=== PATIENT | female | born 1990 | race Caucasian/White ===

== ENCOUNTER → 2021-04-22 | Outpatient (CLI) | payer OTHER ==
--- NOTE | 2021-04-23 08:37 | RAD ---
EXAM: PA, oblique and lateral views of the right wrist DATE: 04/22/2021 1:08 PM INDICATION: Reason: RIGHT WRIST PAIN, HX OF CARPAL TUNNEL COMPARISON: No Prior FINDINGS/ IMPRESSION: No evidence for acute fracture or dislocation. Mild bowing of the pronator fat pad may be postsurgica l or related to soft tissue contusion. Joint spaces are grossly preserved. Electronically signed by: Marin Moore MD (04/23/2021 8:35 AM) [id number]
== END ==
LOC: RAD 13:03
PROVIDERS: ATTEND Physician Assistant
DX: M25.831 Other specified joint disorders, right wrist (principal); G56.01 Carpal tunnel syndrome, right upper limb
CPT/HCPCS: 73110

== ENCOUNTER 2021-11-22 19:22 | Emergency (ER) | payer OTHER ==
[~2021-11-22] VITALS: Ht 157.5 cm; Wt 86.4 kg
[2021-11-22] MEDS ORDERED: LIDO:MAALOX 1:1 20 ML SINGLE DOSE. PO ONE (19:45)
[2021-11-22] MEDS ORDERED: FAMOTIDINE 20 MG/2 ML VIAL IVP ONE (19:45)
--- NOTE | 2021-11-22 19:48 | PHYS DOC ---
General Adult EDM: Chief Complaint: CHEST PAIN HPI: HPI: Patient is a 31-year-old female who presents to the emergency department with heartburn, left shoulder pain and chest tightness that started this morning at 930. Patient reports that she initially had some heartburn and radiated to her left shoulder it was intermittent stabbing pain and she developed midsternal chest tightness. She thought maybe it was attributed to her asthma so she used her inhaler without any relief. He does report mild shortness of breath. Patient reports an episode of diarrhea this morning. She denies nausea, vomiting, fevers. (ROGER FERRARO APRN) Review of Systems: Review of Systems: Constitutional: See HPI Respiratory: See HPI Cardiovascular: See HPI GI: See HPI (ROGER FERRARO APRN) Allergies: Allergies: Allergies Coded Allergies Type Severity Reaction Last Updated Verified ciprofloxacin Allergy Unknown 11/22/21 Yes (ROGER FERRARO APRN) Physical Exam: PE: Constitutional: Well developed, well nourished, no acute distress, non-toxic appearance. [] HENT: Normocephalic, atraumatic, bilateral external ears normal, oropharynx moist, no oral exudates, nose normal. [] Eyes: PERRL, EOMI, conjunctiva normal, no discharge. [] Neck: Normal range of motion, no stridor Cardiovascular:Heart rate regular rhythm, no murmur, no chest wall tenderness with palpation [] Lungs & Thorax: Bilateral breath sounds clear to auscultation [] Abdomen: Bowel sounds normal, soft, no tenderness, obese, no masses, no pulsatile masses. [] Skin: Warm, dry, no erythema, no rash. [] Back: No tenderness, no CVA tenderness. [] Extremities: No tenderness, no cyanosis, no clubbing, ROM intact, no edema. [] Neurologic: Alert and oriented X 3, normal motor function, normal sensory function, no focal deficits noted. [] Psychologic: Affect normal, judgement normal, mood normal. [] (ROGER FERRARO APRN) Current Patient Data: Labs: Laboratory Tests Test 11/22/21 19:29 11/22/21 20:15 Bedside Urine HCG, Qualitative hcg negative White Blood Count 8.7 x10^3/uL Red Blood Count 4.59 x10^6/uL Hemoglobin 14.0 g/dL Hematocrit 41.0 % Mean Corpuscular Volume 89 fL Mean Corpuscular Hemoglobin 31 pg Mean Corpuscular Hemoglobin Concent 34 g/dL Red Cell Distribution Width 12.4 % Platelet Count 291 x10^3/uL Neutrophils (%) (Auto) 55 % Lymphocytes (%) (Auto) 31 % Monocytes (%) (Auto) 7 % Eosinophils (%) (Auto) 6 % Basophils (%) (Auto) 1 % Neutrophils # (Auto) 4.8 x10^3uL Lymphocytes # (Auto) 2.7 x10^3/uL Monocytes # (Auto) 0.6 x10^3/uL Eosinophils # (Auto) 0.5 x10^3/uL Basophils # (Auto) 0.1 x10^3/uL Sodium Level 138 mmol/L Potassium Level 4.2 mmol/L Chloride Level 101 mmol/L Carbon Dioxide Level 25 mmol/L Anion Gap 12 Blood Urea Nitrogen 18 mg/dL Creatinine 0.8 mg/dL Estimated GFR (Cockcroft-Gault) 84.2 BUN/Creatinine Ratio 23 Glucose Level 92 mg/dL Calcium Level 9.6 mg/dL Total Bilirubin 0.3 mg/dL Aspartate Amino Transf (AST/SGOT) 23 U/L Alanine Aminotransferase (ALT/SGPT) 39 U/L Alkaline Phosphatase 72 U/L Troponin I High Sensitivity 5 ng/L Total Protein 7.3 g/dL Albumin 4.3 g/dL Albumin/Globulin Ratio 1.4 Current Medications Medications (Trade) Dose Ordered Sig/Anthony Route PRN Reason Start Time Stop Time Status Last Admin Dose Admin Multi-Ingredient Mouthwash/Gargle (Gi Cocktail) 20 ml 1X ONCE PO 11/22/21 19:45 11/22/21 19:48 DC 11/22/21 20:28 Famotidine (Pepcid Vial) 20 mg 1X ONCE IVP 11/22/21 19:45 11/22/21 19:48 DC 11/22/21 20:26 Morphine Sulfate (Morphine 2mg Syringe) 2 mg 1X ONCE IV 11/22/21 21:15 11/22/21 21:16 DC Ondansetron HCl (Zofran) 4 mg 1X ONCE IVP 11/22/21 21:15 11/22/21 21:16 DC 11/22/21 21:27 (ROGER FERRARO APRN) EKG: EKG: EKG performed by ER staff at 1950 shows sinus rhythm with a rate of 98, QTc of 426, no STEMI read by Dr. Larsen. [] (ROGER FERRARO APRN) Radiology/Procedures: Radiology/Procedures: []PROCEDURE: PORTABLE CHEST 1V Exam Date: 11/22/2021 8:16 PM XR CHEST 1V Indication: Reason: chest tightness / Spl. Instructions: / History: . FINDINGS/ IMPRESSION: The cardiac silhouette and pulmonary vasculature are within normal limits. There is no focal consolidation, pleural effusion or pneumothorax. The visualized osseous structures are intact. Electronically signed by: Olimpia Vigil MD (11/22/2021 9:01 PM) [facility] DICTATED AND SIGNED BY: OLIMPIA VIGIL MD DATE: 11/22/212099 CC: RENE BUSH MD; ROGER FERRARO APRN ~ (ROGER FERRARO APRN) Heart Score: C/O Chest Pain: Yes HEART Score for Chest Pain: HEART Score for Chest Pain Response (Comments) Value History Slighlty/Non-Suspicious 0 Age < 45 0 Risk Factors No Risk Factors 0 Total 0 Risk Factors: Risk Factors: DM, Current or recent (<one month) smoker, HTN, HLP, family history of CAD, obesity. Risk Scores: Score 0 - 3: 2.5% MACE over next 6 weeks - Discharge Home Score 4 - 6: 20.3% MACE over next 6 weeks - Admit for Clinical Observation Score 7 - 10: 72.7% MACE over next 6 weeks - Early Invasive Strategies (ROGER FERRARO APRN) Course & Med Decision Making: Course & Med Decision Making Pertinent Labs and Imaging studies reviewed. (See chart for details) [] Presents to the emergency department for heartburn that radiates to her left shoulder that is intermittent and stabbing as well as midsternal chest tightness. Symptoms started this morning at 930. Work-up in the emergency department consisted of blood work including troponin, EKG and chest x-ray. Patient treated with GI cocktail Pepcid. CBC, CMP and troponin were negative. I went and discussed patient's findings with her and she reports that she gena nues to have heartburn and she is concerned that she may have spontaneous coronary artery dissection because she has FMD. Ddimer and CTA of chest ordered and pending at this time. 2207: I discussed patients case with supervising physician and he will assume care at this time due to shift change. (ROGER FERRARO APRN) Course & Med Decision Making See Tony chart for details. Patient asymptomatic at time of discharge Impression: 1. Atypical Chest Pain 2. GERD 3. Hx. Asthma. Patient keep follow-up with primary care. Consider outpatient stress testing. Return if any concerns. (NOAH LARSEN MD) Dragon Disclaimer: Dragon Disclaimer: This electronic medical record was generated, in whole or in part, using a voice recognition dictation system. (ROGER FERRARO APRN) Departure Departure: Disposition: HOME / SELF CARE / HOMELESS Condition: GOOD Referrals: RENE BUSH MD (PCP) Attending Signature Attending Signature I have participated in the care of this patient and I have reviewed and agree with all pertinent clinical information above including history, exam, and recommendations. (NOAH LARSEN MD) Attending Signature I have participated in the care of this patient and I have reviewed and agree with all pertinent clinical information above including history, exam, and recommendations. (ROGER FERRARO APRN) Dragon Disclaimer This chart was dictated in whole or in part using Voice Recognition software in a busy, high-work load, and often noisy Emergency Department environment. It may contain unintended and wholly unrecognized errors or omissions. (NOAH LARSEN MD) Dragon Disclaimer This chart was dictated in whole or in part using Voice Recognition software in a busy, high-work load, and often noisy Emergency Department environment. It may contain unintended and wholly unrecognized errors or omissions. (ROGER FERRARO APRN) Attending Co-Sign Attending Co-Sign The patient was seen and interviewed as well as examined at the bedside. The chart was reviewed. The case was discussed. Agree with the plan of care. (NOAH LARSEN MD) ROGER FERRARO APRN Nov 22, 2021 19:48 NOAH LARSEN MD Nov 22, 2021 22:04
[2021-11-22 20:33] LABS: BASO # 0.1 x10^3/uL (0.0-0.2); BASO % 1 % (0-3); EOS # 0.5 x10^3/uL (0.0-0.7); EOS % 6 % (0-3); LYMPH # 2.7 x10^3/uL (1.0-4.8); LYMPH % 31 % (24-48); MEAN CORPUSCULAR HEMOGLOBIN 31 pg (25-35); MEAN CORPUSCULAR HGB CONC 34 g/dL (31-37); MEAN CORPUSCULAR VOLUME 89 fL (79-100); MONO # 0.6 x10^3/uL (0.0-1.1); MONO % 7 % (0-9); NEUT # 4.8 x10^3uL (1.8-7.7); NEUT % 55 % (31-73); PLATELET COUNT 291 x10^3/uL (140-400); RED BLOOD COUNT 4.59 x10^6/uL (3.50-5.40); RED CELL DISTRIBUTION WIDTH 12.4 % (11.5-14.5); WHITE BLOOD COUNT 8.7 x10^3/uL (4.0-11.0)
[2021-11-22 20:41] LABS: CALCIUM 9.6 mg/dL (8.5-10.1); CREATININE 0.8 mg/dL (0.6-1.0); GFR 84.2; POTASSIUM 4.2 mmol/L (3.5-5.1)
[2021-11-22 20:47] LABS: ALBUMIN 4.3 g/dL (3.4-5.0); ALBUMIN/GLOBULIN RATIO 1.4 (1.0-1.7); TOTAL BILIRUBIN 0.3 mg/dL (0.2-1.0); TOTAL PROTEIN 7.3 g/dL (6.4-8.2)
--- NOTE | 2021-11-22 21:03 | RAD ---
Exam Date: 11/22/2021 8:16 PM XR CHEST 1V Indication: Reason: chest tightness / Spl. Instructions: / History: . FINDINGS/ IMPRESSION: The cardiac silhouette and pulmonary vasculature are within normal limits. There is no focal consolidation, pleural effusion or pneumothorax. The visualized osseous structures are intact. Electronically signed by: Reyes Vigil MD (11/22/2021 9:01 PM) [facility]
[2021-11-22] MEDS ORDERED: ONDANSETRON PF 4 MG/2 ML VIAL. IVP ONE (21:15)
[2021-11-22] MEDS ORDERED: MORPHINE SULFATE 2 MG/ML DISP.SYRIN. IV ONE (21:15)
--- NOTE | 2021-11-22 21:58 | EKG ---
[address] [address] Test Date: 2021-11-22 Test Time: 19:50:00 Pat Name: APRIL NOGUERA Department: Room: Gender: F [employer]: : 1990 Requested By: ROGER FERRARO Order Number: [id number] Reading MD: Measurements Intervals [place] Rate: 98 P: 47 IN: 120 QRS: 55 QRSD: 78 T: 33 QT: 332 QTc: 426 Interpretive Statements SINUS RHYTHM QRS(T) CONTOUR ABNORMALITY CONSIDER ANTEROLATERAL MYOCARDIAL DAMAGE POSSIBLY ABNORMAL ECG RI6.01 No previous ECG available for comparison
[2021-11-22] MEDS ORDERED: IOHEXOL 350 MG/ML 100 ML VIAL. IV ONE (22:00)
[2021-11-22] MEDS ORDERED: CONTRAST GIVEN. MC PRN (22:15)
[2021-11-22 23:20] LABS: U PREG PATIENT NEGATIVE (NEG)
[2021-11-23] MEDS ORDERED: INSULIN REGULAR 100 UNIT/ML 3ML VIAL. IV ONE (02:00)
[2021-11-23] MEDS ORDERED: INSULIN REGULAR VIAL 100 UNIT in IV NORMAL SALINE 100ML 100 ML IV PRN (02:00)
[2021-11-23 02:14] VITALS: BP 135/87
== END 2021-11-23 02:15 | disposition home or self-care (01) ==
LOC: ER 19:22
DX: K21.9 Gastro-esophageal reflux disease without esophagitis (principal); R07.2 Precordial pain; M25.512 Pain in left shoulder; J45.909 Unspecified asthma, uncomplicated; Z88.1 Allergy status to other antibiotic agents
CPT/HCPCS: 36415; 71045; 80053; 81025; 84484; 85025; 85379; 93005; 96374; 96375; 99285; J2405; J3490